=== PATIENT | female | born 1980 | race Caucasian/White ===

== ENCOUNTER → 2024-02-11 07:06 | Outpatient (REF) | payer BC, SELFPAY ==
[2024-02-11 08:01] LABS: % Eosinophils 3.4 % (0-6); % Immature Granulocytes 0.2 % (0-0.5); % Lymphocytes 35.3 % (20.5-51.1); % Monocytes 8.4 % (1.7-9.3); % Neutrophils 51.7 % (42.2-75.2); Absolute Basophils 0.1 10^3/uL (0-0.2); Absolute Eosinophils 0.2 10^3/uL (0-0.7); Absolute Lymphocytes 2.1 10^3/uL (1.2-3.4); Absolute Monocytes 0.5 10^3/uL (0.1-0.6); Absolute Neutrophils 3.1 10^3/uL (1.4-6.5); Hemoglobin 13.5 g/dL (12.0-16.0); Mean Corp Hgb Conc. 34.6 g/dL (33.0-37.0); Mean Corpuscular Hgb 30.8 pg (27.0-31.0); Mean Corpuscular Volume 88.8 fL (81.0-99.0); Mean Platelet Volume 10.2 fL (7.4-10.4); Nucleated Red Blood Cells % 0 %; Platelet Count 195 10^3/uL (130-400); Red Blood Cell Count 4.39 10^6/uL (4.20-5.40); Red Cell Dist. Width 12.8 % (11.5-14.5); White Blood Cell Count 5.9 10^3/uL (4.8-10.8)
[2024-02-11 08:31] LABS: Glycohemoglobin (HgbA1c) 5.2 % (4.0-5.6)
[2024-02-11 08:42] LABS: ALT (SGPT) 30 U/L (0-35); AST (SGOT) 33 U/L (14-36); Albumin 4.4 g/dl (3.5-5.0); Alkaline Phosphatase 45 U/L (38-126); Blood Urea Nitrogen 22 mg/dl (7-17); Calcium 9.2 mg/dl (8.4-10.2); Carbon Dioxide 26 mmol/L (22-30); Chloride 104 mmol/L (98-107); Glucose 96 mg/dl (70-99); HDL Cholesterol 77 mg/dl; LDL Cholesterol, Calculated 75 mg/dl; Potassium 4.6 mmol/L (3.5-5.1); Sodium 139 mmol/L (135-145); Total Bilirubin 0.3 mg/dl (0.2-1.3); Total Cholesterol 160 mg/dl (50-199); Total Protein 6.8 g/dl (6.3-8.2); Triglyceride 42 mg/dl (10-149); Very Low Density Lipoprotein 8 mg/dl (0-30); eGFR > 60.00
[2024-02-11 09:10] LABS: TSH Reflex To Free T4 0.85 uIU/ml (0.47-4.68)
[2024-02-13 16:33] LABS: Lyme Antibody Screen, EIA Negative (Negative)
== END ==
LOC: REG 07:06
PROVIDERS: ATTENDING PHYSICIAN Nurse Practitioner Family
DX: Z01.89 Encounter for other specified special examinations (principal); S40.261A Insect bite (nonvenomous) of right shoulder, initial encounter; R73.01 Impaired fasting glucose
CPT/HCPCS: 36415; 80053; 80061; 83036; 84443; 85025; 86618